=== PATIENT | male | born 1955 | race Caucasian/White ===

== ENCOUNTER 2019-10-14 09:40 | Emergency (ER) | payer MEDICARE, SELFPAY ==
[2019-10-14 09:45] VITALS: BMI 23.6
[2019-10-14 09:49] VITALS: BP 103/62; PULSE 62; RESP 18; TEMP 36.8; O2SAT 95
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
[2019-10-14 10:41] VITALS: BP 123/79; PULSE 56; RESP 16; O2SAT 91
[2019-10-14 10:59] VITALS: BP 123/77; PULSE 57; RESP 14; O2SAT 94
== END 2019-10-14 11:00 | disposition home or self-care (01) ==
LOC: ER 11:30
PROVIDERS: Emergency Provider Family Medicine; PCP Nurse Practitioner Family
DX: S22.31XA Fracture of one rib, right side, initial encounter for closed fracture (principal); F17.210 Nicotine dependence, cigarettes, uncomplicated; V89.2XXA Person injured in unspecified motor-vehicle accident, traffic, initial encounter
CPT/HCPCS: 12345; 71111; 99281; 99283

== ENCOUNTER 2020-12-22 17:03 | Emergency (ER) | payer MEDICARE, MEDICAID, SELFPAY ==
[2020-12-22 17:20] VITALS: BP 103/72; PULSE 78; RESP 16; TEMP 35.9; O2SAT 93; BMI 23.6
--- NOTE | 2020-12-22 17:31 | XRR_ITS ---
PROCEDURE INFORMATION: Exam: XR Chest Exam date and time: 12/22/2020 5:31 PM Age: 65 years old Clinical indication: Dyspnea and shortness of breath TECHNIQUE: Imaging protocol: XR of the chest. Views: 1 view. COMPARISON: CR XR ribs BI mn 4V w CXR1V [id number] 10/14/2019 10:24 AM FINDINGS: Lungs: Patchy ground-glass opacity in the peripheral right upper lobe and medial left lung base. Nipple shadow projects over the right lung base. Changes of emphysema. Pleural spaces: Unremarkable. No pleural effusion. No pneumothorax. Heart/Mediastinum: Unremarkable. No cardiomegaly. Bones/joints: Unremarkable. XR/XR chest 1V portable [id number] IMPRESSION: 1. Ground-glass opacities in the peripheral right upper lobe and left lung base are suspicious for pneumonia.
--- NOTE | 2020-12-22 17:33 | ED_ITS ---
HPI - COVID General: Chief Complaint: COVID symptoms Stated Complaint: Tired, slurred speech, off balance, sent from Time Seen by Provider: 12/22/20 17:31 Triage information: Has fever, cough or shortness of breath . No known COVID + exposure last 14 days History of Present Illness: HPI Narrative: 65-year-old male patient comes in today with complaints of weakness and not feeling well. Patient reports he has not felt good for the past few days. Patient is not specific how long he has felt bad. Patient was seen at [facility] and was tested positive for COVID- 19. Patient had a chest x-ray showed some patchy pneumonia. It was reported that patient had some low oxygen saturations at the clinic. Patient also had some lab work done at the clinic which showed mild elevation in the platelet count at 580, but otherwise unremarkable labs. COVID 19 common symptoms: positive fatigue COVID Results: No Data to Display Review of Systems General: Reports: 10 or more systems reviewed and unremarkable except in HPI and below Const: Reports: fatigue and malaise PFS ED PFSH: Family History Mother Dementia Father CAD (coronary artery disease) Social History Smoking and tobacco status: current every day smoker cigarettes Packs smoked per day: 2 Physical Exam Const: COMMON NORMALS: no acute distress and patient oriented x3 GENERAL APPEARANCE: cooperative HENMT: COMMON NORMALS: normocephalic and Normal external nose present HEAD & SCALP: normal to inspection and normocephalic NOSE: Normal external nose present MOUTH: Normal oral and palatal mucosa present Eye: GENERAL EYE: appearance normal, both eyes and all related structures Neck/C-Spine: COMMON NORMALS: full ROM Chest: COMMONS NORMALS: normal inspection of the chest Resp: COMMON NORMALS: normal respiratory effort EFFORT & INSPECTION: Yes able to speak in complete sentences AUSCULTATION: crackles Laterality: posterior (bases) Cardio: COMMON NORMALS: regular rate and regular rhythm RATE: regular rate RHYTHM: regular rhythm GI: COMMON NORMALS: non-tender Extremity: COMMON NORMALS: normal to inspection Neuro: COMMON NORMALS: patient oriented x3 and moves all extremities Psych: COMMON NORMALS: mental status grossly normal and cooperative Skin: COMMON NORMALS: no rashes or lesions noted GENERAL SKIN EXAM: no rashes or lesions noted Course Vital Signs: Vital signs: Vital Signs Temperature 96.7 F L 12/22/20 17:20 Pulse Rate 78 12/22/20 17:20 Respiratory Rate 16 12/22/20 17:20 Blood Pressure 103/72 12/22/20 17:20 Pulse Oximetry 97 12/22/20 18:44 MDM - COVID MDM Narrative: Medical decision making narrative: 65-year-old male patient was sent to the emergency department for concerns of Covid pneumonia. Patient will had some weakness. On exam patient was alert oriented and appeared well. Lungs have some crackles in the bases bilaterally. Skin was warm and dry. Vital signs were normal. Abdomen soft nontender. Differential diagnosis includes but not limited to severe Covid pneumonia, viral syndrome, dehydration. Reviewed laboratory values from [facility] noting some mild elevation of the platelets but otherwise unremarkable. I ordered a D-dimer here it was 0.6, C-reactive protein was 61, lactate was 1.4. Patient was given 500 mL of sodium chloride IV. Patient had significant improvement overall. Patient stated he felt better after the IV fluids. I discussed with patient the need to make sure that he is staying well-hydrated during his illness. Chest x-ray did note some bilateral patchy groundglass pneumonia. I discussed with patient monoclonal antibody treatment and he agreed to plan. A request was placed with central scheduling to arrange infusion. Patient will be sent home with a pulse oximetry to monitor oxygen saturation. Patient's oxygen saturation in the emergency room ran 93 to 99% on room air. Patient felt well and wanted to go home. Lab Data: Labs: Lab Results 12/22/20 12/22/20 12/22/20 Range/Units 18:00 18:00 18:00 D-Dimer 0.60 H (0-0.59) ug/mIFE U Lactic Acid 1.4 (0.5-2.2) mmol/L C-Reactive Protein 61.0 H (0.0-4.9) mg/L COVID Results: No Data to Display Discharge Plan Discharge Patient Disposition: Home Clinical Impression: Pneumonia due to 2019-nCoV Condition: Stable Prescriptions: New albuterol sulfate 90 mcg/actuation HFA aerosol inhaler 2 inh inhalation Q4H PRN (Reason: shortness of breath or wheezing) Qty: 8.5 RF: 0 Discharge Orders: Discharge ED (Routine); Ordered 12/22/20 Ordered By: Art Xiong Other Ambulatory Orders: Request for MCA (Routine) Timeframe: 1 Day Facility: [facility] - Location: Outpatient Surgical Services Ordered By: Art Xiong DME: Oxygen (Order) Location: None Selected Ordered By: Art Xiong Referrals: Sharmila Sosa FNP [Primary Care Provider] - Discharge Diet: Usual diet Discharge Activity: Increase activity as tolerated Patient Instructions: Viral Pneumonia (ED), Opioid Safety Activity Restrictions/Additional Instructions: Home and rest. Drink plenty of fluids. Use acetaminophen as needed for pain or discomfort. Use albuterol inhaler 2 puffs every 4 hours as needed for cough or difficulty breathing. Central scheduling will contact you regarding follow-up for monoclonal antibody infusion. Follow-up with primary care as needed. Return to the ER for worsening symptoms or new concerns. Coding Level of Care Code ED Launch Steward for Jose Ramon Fwd Exam Comprehensive
--- NOTE | 2020-12-22 17:42 | PC.PHAR ---
PT UNABLE TO CONFIRM MEDICATIONS. PT'S DAUGHTER IN LAW, MILKA CARDENAS, STATES THAT HE IS SUPPOSED TO BE TAKING CRESTOR AND LEXIPRO, BUT HE ISN'T. THEY WERE LAST FILLED ON 04/12/2020 FOR 90 DAYS.
[2020-12-22 18:04] VITALS: O2SAT 95
[2020-12-22 18:27] LABS: Lactic Sepsis W/Reflex 1.4 mmol/L (0.5-2.2)
[2020-12-22 18:44] VITALS: O2SAT 93; O2SAT 97
[2020-12-22 19:44] VITALS: BP 115/86; PULSE 85; RESP 16; O2SAT 95
== END 2020-12-22 20:21 | disposition home or self-care (01) ==
PROVIDERS: Emergency Provider Nurse Practitioner Family; PCP Nurse Practitioner Family
DX: U07.1 COVID-19 (principal); J12.82 Pneumonia due to coronavirus disease 2019; F17.210 Nicotine dependence, cigarettes, uncomplicated
CPT/HCPCS: 71045; 83605; 85378; 86140; 99282

== ENCOUNTER 2022-05-06 15:17 | Emergency (ER) | payer MEDICARE, MEDICAID, SELFPAY ==
[2022-05-06 15:35] VITALS: BP 124/79; PULSE 76; RESP 18; TEMP 37.5; O2SAT 96; BMI 22.9
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
[2022-05-06 17:34] LABS: Basophils # 0.1 10^3/uL (0.0-0.1); Basophils % 0.8 %; Eosinophils # 0.2 10^3/uL (0.0-0.8); Eosinophils % 1.9 %; Hematocrit 46.7 % (42.0-52.0); Hemoglobin 15.1 g/dL (11.7-16.6); Lymphocytes # 1.6 10^3/uL (0.8-4.8); Lymphocytes % 17.6 %; Mean Corpuscular HGB Conc 32.3 g/dL (30.0-36.0); Mean Corpuscular Hemoglobin 29.8 pg (28.0-34.0); Mean Corpuscular Volume 92.3 fl (80-94); Mean Platelet Volume 9.2 fL (7.4-10.4); Monocytes # 0.5 10^3/uL (0.2-0.9); Monocytes % 5.1 %; Neutrophils # 6.73 10^3/uL (1.8-7.7); Neutrophils % 74.2 %; Nucleated Red Blood Cells % 0 %; Platelet Count 257 10^3/cmm (130-400); Red Blood Count 5.06 10^6/uL (4.1-5.3); Red Cell Distribution Width 14.5 % (12.1-15.1); White Blood Count 9.1 10^3/uL (4.0-10.0)
[2022-05-06 17:51] LABS: Alanine Aminotransferase 18 U/L (0-41); Albumin Level 4.5 g/dL (3.5-5.2); Alkaline Phosphatase 99 U/L (40-130); Anion Gap 12.5 (5-19); Aspartate Amino Transferase 21 U/L (0-40); Blood Urea Nitrogen 18 mg/dL (8-23); Carbon Dioxide 27 mmol/L (22-29); Chloride 102 mmol/L (98-107); Globulin 2.7 g/dL (1.3-4.6); Glomerular Filtration Rate 84.2 mL/min (90-130); Glucose 95 mg/dL (65-115); Osmolality Calculated 286 mOsm/kg (285-295); Potassium 4.5 mmol/L (3.5-5.1); Salicylate 0.7 mg/dL (3-10); Sodium 137 mmol/L (136-145); Total Bilirubin 0.4 mg/dL (0.15-1.2); Total Protein 7.2 g/dL (6.6-8.7)
[2022-05-06 17:55] LABS: Acetaminophen < 5.0 ug/mL (10-30); Alcohol Level < 10 mg/dL (0-10)
[2022-05-06 18:01] LABS: Add Urine Microscopic? NO; Charge for UA Resulting for Rev
[2022-05-06 18:10] LABS: Amphetamines Screen Urine Negative (Negative); Barbiturates Screen Urine Negative (Negative); Benzodiazepines Screen Urine Negative (Negative); Cocaine Screen Urine Negative (Negative); Opiate Screen Urine Negative (Negative); PCP Screen Urine Negative (Negative); THC Screen Urine Negative (Negative)
[2022-05-06 18:20] LABS: Bilirubin Urine Neg (Negative); Blood Urine Neg (Negative); Glucose Urine UA Norm (Normal); Ketones Urine Negative (Negative); Leukocyte Esterase Urine Negative (Negative); Nitrate Urine Negative (Negative); Protein Urine Neg (Negative); Urine Appearance Clear (CLEAR); Urine Color Yellow (Yellow); Urobilinogen Urine Norm (Negative); pH Urine 5 (5-7)
--- NOTE | 2022-05-06 18:30 | CTR_ITS ---
PROCEDURE INFORMATION: Exam: CT Head Without Contrast Exam date and time: 05/06/2022 7:01 PM Age: 66 years old Clinical indication: Screening exam; Additional info: Confusion TECHNIQUE: Imaging protocol: Computed tomography of the head without contrast. Radiation optimization: All CT scans at this facility use at least one of these dose optimization techniques: automated exposure control; mA and/or kV adjustment per patient size (includes targeted exams where dose is matched to clinical indication); or iterative reconstruction. COMPARISON: No relevant prior studies available. RADIATION DOSE METRICS: Total DLP (mGy-cm): 911.68 FINDINGS: Brain: No focal hemorrhage or midline shift is identified. The ventricles and parenchyma show mild atrophy and chronic bicerebral white matter ischemic change. Cerebral ventricles: No ventriculomegaly or evidence of hydrocephalus. Paranasal sinuses: No evidence of acute sinusitis. Mastoid air cells: Visualized mastoid air cells are well aerated. Bones/joints: No displaced skull fracture is noted. Soft tissues: Unremarkable. Vasculature: Diffuse vascular calcifications are present. CT/CT head wo con* [id number] IMPRESSION: 1. No acute intracranial abnormality. 2. Mild age-related changes.
--- NOTE | 2022-05-06 18:40 | W.ED.PSYCHS ---
HPI - Psych General: Chief Complaint: Psychiatric Symptoms Stated Complaint: MHE Time Seen by Provider: 05/06/22 18:27 Source: patient Mode of arrival: ambulatory Limitations: no limitations History of Present Illness: 66-year-old male is here with family they states that he has had increasing confusion over the last year after having COVID believe he does have some dementia he states his main concern tonight though he is became increasingly angry they state that he was making threats today to kill himself or kill others in the house he had made fragments that he was going to get a gun he is here he does want help he states he just feels like he is increasingly depressed and angry. Associated symptoms: Reports depression and suicidal ideation Review of Systems Const: Denies: fever(s), chills, body aches or change in appetite Eyes: Denies: blurry vision or eye discomfort ENMT: Denies: throat pain or dental pain Card: Denies: chest pain Resp: Denies: dyspnea GI: Denies: abdominal pain, nausea, vomiting or diarrhea : Denies: dysuria Musc: Denies: neck pain or back pain Skin/Breast: Denies: rash Neuro: Denies: headache(s) Psych: Reports: depression and suicidal ideation John/Lymph: Denies: easy bruising All/Imm: Denies: urticaria PFSH ED PFSH: Medical History (Updated 05/07/22 @ 02:20 by Kamila Lainez MD) Memory impairment Family History Mother Dementia Father CAD (coronary artery disease) Social History Smoking and tobacco status: current every day smoker cigarettes Packs smoked per day: 2 Physical Exam Const: COMMON NORMALS: no acute distress, patient oriented x3 and healthy appearing HENMT: COMMON NORMALS: normocephalic and atraumatic HEAD & SCALP: normocephalic and atraumatic Eye: COMMON NORMALS: Equal, round and reactive pupils present and EOMs intact bilaterally PUPIL: Yes Equal, round and reactive pupils present Neck/C-Spine: COMMON NORMALS: full ROM and supple Chest: COMMONS NORMALS: normal inspection of the chest and normal palpation of entire chest wall Resp: COMMON NORMALS: normal respiratory effort, No retractions, No use of accessory muscles and clear to auscultation bilaterally AUSCULTATION: clear to auscultation bilaterally Cardio: COMMON NORMALS: regular rate, regular rhythm and No murmurs present (Cardio) RATE: regular rate RHYTHM: regular rhythm GI: COMMON NORMALS: Normal to inspection, nondistended, normoactive bowel sounds present, Soft to palpation, non-tender and no masses PALPATION: Yes Soft to palpation Extremity: COMMON NORMALS: normal to inspection and full ROM Neuro: COMMON NORMALS: patient oriented x3, moves all extremities and no focal motor deficits Psych: COMMON NORMALS: mental status grossly normal, Normal thought process present and cooperative THOUGHT PROCESS: Normal thought process present THOUGHT CONTENT: Yes Suicidality present Skin: COMMON NORMALS: no rashes or lesions noted and no wounds GENERAL SKIN EXAM: no rashes or lesions noted Course Vital Signs: Vital signs: Vital Signs Temperature 99.5 F 05/06/22 15:35 Pulse Rate 76 05/06/22 15:35 Respiratory Rate 18 05/06/22 15:35 Blood Pressure 124/79 05/06/22 15:35 Pulse Oximetry 96 05/06/22 15:35 Oxygen Delivery Me thod 05/06/22 15:35 MDM - Psych Medical Decision Making Patient presents here with depression and suicidal ideation patient's medically cleared he is excepted at [place] will transfer there. Lab Data 05/06/22 17:21 05/06/22 17:21 Radiology Impressions Chest X-Ray 05/06/22 16:26 IMPRESSION: 1. No consolidation or pneumothorax. 2. A few left lower lateral rib fractures are possible. Head CT 05/06/22 18:30 IMPRESSION: 1. No acute intracranial abnormality. 2. Mild age-related changes. Laboratory Results WBC 9.1 10^3/uL (4.0-10.0) 05/06/22 17:21 RBC 5.06 10^6/uL (4.1-5.3) 05/06/22 17:21 Hgb 15.1 g/dL (11.7-16.6) 05/06/22 17:21 Hct 46.7 % (42.0-52.0) 05/06/22 17:21 MCV 92.3 fl (80-94) 05/06/22 17:21 MCH 29.8 pg (28.0-34.0) 05/06/22 17:21 MCHC 32.3 g/dL (30.0-36.0) 05/06/22 17:21 RDW 14.5 % (12.1-15.1) 05/06/22 17:21 Plt Count 257 10^3/cmm (130-400) 05/06/22 17:21 MPV 9.2 fL (7.4-10.4) 05/06/22 17:21 Neut % (Auto) 74.2 % 05/06/22 17:21 Lymph % (Auto) 17.6 % 05/06/22 17:21 [place] % (Auto) 5.1 % 05/06/22 17: Eos % (Auto) 1.9 % 05/06/22 17: Baso % (Auto) 0.8 % 05/06/22 17: Neut # (Auto) 6.73 10^3/uL (1.8-7.7) 05/06/22 17: Lymph # (Auto) 1.6 10^3/uL (0.8-4.8) 05/06/22 17:21 [place] # (Auto) 0.5 10^3/uL (0.2-0.9) 05/06/22 17:21 Eos # (Auto) 0.2 10^3/uL (0.0-0.8) 05/06/22 17:21 Baso # (Auto) 0.1 10^3/uL (0.0-0.1) 05/06/22 17: Nucleated RBC % (auto) 0 % 05/06/22 17: Nucleated RBCs # 0.0 /100WBC 05/06/22 17:21 Sodium 137 mmol/L (136-145) 05/06/22 17:21 Potassium 4.5 mmol/L (3.5-5.1) 05/06/22 17:21 Chloride 102 mmol/L (98-107) 05/06/22 17:21 Carbon Dioxide 27 mmol/L (22-29) 05/06/22 17:21 Anion Gap 12.5 (5-19) 05/06/22 17:21 BUN 18 mg/dL (8-23) 05/06/22 17:21 Creatinine 0.9 mg/dL (0.7-1.2) 05/06/22 17:21 GFR Calculation 84.2 mL/min (90-130) L 05/06/22 17:21 Glucose 95 mg/dL (65-115) 05/06/22 17:21 Calculated Osmolality 286 mOsm/kg (285-295) 05/06/22 17:21 Calcium 10.0 mg/dL (8.5-10.5) 05/06/22 17:21 Total Bilirubin 0.4 mg/dL (0.15-1.2) 05/06/22 17:21 AST 21 U/L (0-40) 05/06/22 17:21 ALT 18 U/L (0-41) 05/06/22 17:21 Alkaline Phosphatase 99 U/L (40-130) 05/06/22 17:21 Total Protein 7.2 g/dL (6.6-8.7) 05/06/22 17:21 Albumin 4.5 g/dL (3.5-5.2) 05/06/22 17: Globulin 2.7 g/dL (1.3-4.6) 05/06/22 17: TSH 3.51 uIU/mL (0.27-4.20) 05/06/22 17:21 Urine Color Yellow (Yellow) 05/06/22 17:30 Urine Appearance Clear (CLEAR) 05/06/22 17:30 Urine pH 5 (5-7) 05/06/22 17:30 Ur Specific [place] 1.010 (1.005-1.030) 05/06/22 17:30 Urine Protein Neg (Negative) 05/06/22 17:30 Urine Glucose (UA) Norm (Normal) 05/06/22 17:30 Urine Ketones Negative (Negative) 05/06/22 17:30 Urine Blood Neg (Negative) 05/06/22 17:30 Urine Nitrate Negative (Negative) 05/06/22 17: Urine Bilirubin Neg (Negative) 05/06/22 17:30 Urine Urobilinogen Norm mg/dL (Negative) 05/06/22 17:30 Ur Leukocyte Esterase Negative (Negative) 05/06/22 17:30 Salicylates 0.7 mg/dL (3-10) L 05/06/22 17: Urine Opiates Screen Negative ng/mL (Negative) 05/06/22 17:30 Acetaminophen < 5.0 ug/mL (10-30) L 05/06/22 17:21 Ur Barbiturates Screen Negative ng/mL (Negative) 05/06/22 17:30 Ur Phencyclidine Scrn Negative ng/mL (Negative) 05/06/22 17:30 Ur Amphetamines Screen Negative ng/mL (Negative) 05/06/22 17:30 U Benzodiazepines Scrn Negative ng/mL (Negative) 05/06/22 17:30 Urine Cocaine Screen Negative ng/mL (Negative) 05/06/22 17:30 U Marijuana (THC) Screen Negative ng/mL (Negative) 05/06/22 17:30 Ethyl Alcohol < 10 mg/dL (0-10) 05/06/22 17:21 SARS-CoV-2 Ag (Rapid) negative (Negative) 05/06/22 19:30 Discharge Plan Discharge Patient Disposition: Xfer [facility]iatric [facility]osp Clinical Impression: Suicidal ideation Condition: Stable Prescriptions: No Action albuterol sulfate 90 mcg/actuation HFA aerosol inhaler 2 inh inhalation Q4H PRN (Reason: shortness of breath or wheezing) Qty: 8.5 0RF Referrals: Sharmila Sosa FNP [Primary Care Provider] - Coding Level of Care Code ED Workers Compensation Claims Analyst for Chg Fwd Exam Comprehensive
[2022-05-06 19:07] LABS: Thyroid Stimulating Hormone 3.51 uIU/mL (0.27-4.20)
[2022-05-06 19:50] LABS: SARS Covid-2 Antigen negative (Negative)
--- NOTE | 2022-05-06 22:25 | ECG_ITS ---
[facility] Test Date: 2022-05-06 Pat Name: Alfie Paige Department: Room: Gender: Male Shaper And Presser: : 1955 Requested By: Kamila Lainez Order Number: [id number] Vita MD: Kashmir Clifford M.D. Measurements Intervals [place] Rate: 65 P: 74 FL: 170 QRS: -70 QRSD: 88 T: 63 QT: 407 QTc: 425 Interpretive Statements SINUS RHYTHM LOW QRS VOLTAGE IN PRECORDIAL LEADS [QRS DEFLECTION < 1.0 mV IN CHEST LEADS] LEFT ANTERIOR FASCICULAR BLOCK [QRS AXIS <= -45, QR IN I, RS IN II] POSSIBLE ANTERIOR MYOCARDIAL INFARCTION , OF INDETERMINATE AGE [30 ms Q WAVE IN V3/V4, OR R < 0.2 mV IN V4] INTERPRETATION BASED ON A DEFAULT AGE OF 40 YEARS No previous ECG available for comparison Electronically Signed On 05-07-2022 7:39:46 SENIOR ANALYTICAL CHEMIST by Kashmir Clifford M.D. [email or web address]
[2022-05-06 23:11] VITALS: BP 112/71; PULSE 76; RESP 18; O2SAT 97
--- NOTE | 2022-05-07 04:18 | PC.NURSE ---
Report called to Wendy Rudolph RN at [place].
[2022-05-07 05:35] VITALS: BP 118/67; PULSE 72; RESP 18; O2SAT 96
[2022-05-07 08:23] VITALS: BP 118/67; PULSE 72; RESP 18; O2SAT 96
== END 2022-05-07 08:25 ==
PROVIDERS: Physician Assistant; Emergency Provider Emergency Medicine; PCP Nurse Practitioner Family
DX: R45.851 Suicidal ideations (principal); Z20.822 Contact with and (suspected) exposure to COVID-19; F17.210 Nicotine dependence, cigarettes, uncomplicated
CPT/HCPCS: 36415; 70450; 71045; 80053; 80306; 80307; 81003; 84443; 85025; 87426; 93005; 99285

== ENCOUNTER 2023-05-05 11:15 | Emergency (ER) | payer MEDICARE, MEDICAID, SELFPAY ==
--- NOTE | 2023-05-05 11:19 | W.ED.FALL ---
Documented by User: KACIE Rosalse 05/05/23 15:05 HPI - Fall General: Chief Complaint: Extremity Injury, Lower Stated Complaint: fall, hip, shoulder, and neck pain Time Seen by Provider: 05/05/23 11:17 Source: patient Mode of arrival: EMS Limitations: no limitations History of Present Illness: Patient is a nice 67-year-old male who presents to ED today via EMS for evaluation following a fall. Patient states he is stepped outside to smoke a cigarette when he slipped and fell on the icy concrete. Patient states he landed onto his left side and is complaining of left hip pain and left shoulder pain. He denies striking his head or LOC. He has no other physical complaints apart from the left hip and left shoulder pain. He states the left shoulder pain is fairly minimal when compared to the pain in his hip. He states he was able to be helped up from the ground by another individual but could not bear weight following this. PMH is significant for COPD. He arrives to the ED slightly hypotensive. He is unsure what a normal blood pressure is for him. MD complaint: fall Onset (ago): hour(s) Fall from: standing Fall witnessed: no Place fall occurred: home Loss of consciousness: None Prolonged down time: no Symptoms prior to fall: none Context: tripped/slipped (ice) Associated symptoms-after fall: Denies abdominal pain, chest pain, headache(s), hematuria, lightheadedness or neck pain Review of Systems Eyes: Denies: change in vision, blurry vision, photophobia, eye discharge, floaters or seeing flashes ENMT: Denies: throat pain, odynophagia, ear or mastoid pain, ear discharge, nasal discharge, epistaxis or sinus pain Card: Denies: chest pain, palpitations, lightheadedness, syncope or pre-syncope Resp: Denies: dyspnea or pain on inspiration GI: Denies: abdominal pain : Denies: flank pain or hematuria Musc: Reports: joint pain (L shoulder, L hip); Denies: neck pain, back pain, extremity pain or extremity swelling Neuro: Denies: headache(s), numbness in extremities, weakness in extremities, sensory changes or dizziness [facility] ED PFSH: Medical History Memory impairment Family History Mother Dementia Father CAD (coronary artery disease) Social History Smoking and tobacco/nicotine status: current every day tobacco/nicotine user cigarettes Packs smoked per day: 2 Physical Exam Const: COMMON NORMALS: no acute distress, average body habitus, patient oriented x3, no limitations, healthy appearing, alert and well nourished GENERAL APPEARANCE: cooperative ORIENTATION/CONSCIOUSNESS: Yes awake, Yes oriented to person, Yes oriented to place and Yes oriented to time HENMT: COMMON NORMALS: normocephalic, atraumatic and TM's normal bilaterally HEAD & SCALP: normal to inspection, normocephalic and atraumatic; no Castro's sign, no hematoma and no raccoon eyes FACE & SINUS: normal facial exam TYMPANIC MEMBRANE: TM's normal bilaterally MOUTH: other (no intraoral injuries noted) Eye: COMMON NORMALS: Equal, round and reactive pupils present and EOMs intact bilaterally GENERAL EYE: appearance normal, both eyes and all related structures and normal light reflex PUPIL: Yes Equal, round and reactive pupils present DIRECT OPHTHALMOSCOPY: Yes normal light reflex Neck/C-Spine: COMMON NORMALS: full ROM GENERAL: Yes normal visual inspection CERVICAL SPINE: Yes cervical ROM normal, No pain with cervical ROM, No Cervical spine tenderness, No step off deformity and No Paracervical muscle tenderness Chest: COMMONS NORMALS: normal inspection of the chest and normal palpation of entire chest wall Resp: COMMON NORMALS: normal respiratory effort and clear to auscultation bilaterally AUSCULTATION: clear to auscultation bilaterally Cardio: COMMON NORMALS: regular rate and regular rhythm RATE: regular rate RHYTHM: regular rhythm GI: COMMON NORMALS: Normal to inspection, nondistended, normoactive bowel sounds present, Soft to palpation, non-tender, No hepatosplenomegaly present and no masses INSPECTION: Yes normal to inspection and No abdominal wall ecchymosis AUSCULTATION: Yes normoactive bowel sounds PALPATION: Yes Soft to palpation and Yes No hepatosplenomegaly present Back/Pelvis: COMMON NORMALS: thoracic and lumbar spine normal to inspection, no thoracic nor lumbar tenderness and thoraco-lumbar ROM normal Extremity: COMMON NORMALS: normal to inspection, no joint enlargement, no clubbing, cyanosis or edema, no calf tenderness and no pedal edema GENERAL: Yes normal exam except as noted LEFT UPPER EXTREMITY: Yes shoulder joint Left shoulder joint: Yes inspection (normal gross inspection), Yes ROM (fairly good ROM; states joint feels sore) and Yes neurovascular exam (normal) LEFT LOWER EXTREMITY: Yes hip joint Left hip: Yes inspection (no shortening or rotation noted), Yes palpation (no bony abnormalities palpated), Yes ROM (pain with flexion/adduction) and Yes neurovascular exam (normal) Neuro: JOHN COMA SCALE: document GCS findings John coma scale eye opening: Spontaneous [place] coma scale verbal response: Orientated John coma scale motor response: Obey commands [place] coma scale total score: 15 COMMON NORMALS: patient oriented x3, CN's II-XII intact bilaterally, moves all extremities, no focal motor deficits, no sensory deficits noted and gait normal SENSORIUM/ORIENTATION: Yes alert, Yes oriented to person, Yes oriented to place and Yes oriented to time SPEECH: speech normal GAIT: Yes Normal gait present Skin: COMMON NORMALS: no rashes or lesions noted GENERAL SKIN EXAM: no rashes or lesions noted TRAUMA: no lacerations or abrasions Course Vital Signs: Vital signs: Vital Signs Pulse Rate 60 05/05/23 15:30 Respiratory Rate 18 05/05/23 15:30 Blood Pressure 135/73 05/05/23 15:30 Pulse Oximetry 95 05/05/23 15:30 Oxygen Delivery Me thod Nasal Cannula 05/05/23 11:25 Oxygen Flow Rate 2 05/05/23 11:25 MDM - Fall Medical Decision Making Chart reviewed and patient discussed with midlevel. Agree with assessment and plan. Patient here following a slip and fall. He arrives with a complaint of left shoulder and left hip pain. X-ray of the shoulder is negative for acute fracture. X-ray of the hip showing questionable pelvic fractures by personal interpretation. Bony pelvis was ordered. This shows multiple pelvic fractures including comminuted anterior and superior acetabular fractures extending into his left ilium. He has fractures of his superior and inferior pubic rami. He has a left pelvic sidewall hematoma measuring 9.8 x 3.5 cm. He did arrive mildly hypotensive. This has improved. Initially spoke to Dr. Nolen who was willing to consult on patient here if needed. We had spoken to Dr. Gibson who had recommended repeat hemoglobin as there was concern for enlarging hematoma. Repeat hemoglobin went from 14.7 to 13.1. Because of this patient is going to require transfer. Dr. Harper has also evaluated patient and agrees with care plan here and need for transfer. I have spoken to Dr. Jackson, ED [facility] physician, who accepts transfer. Pelvic binder has been placed. Patient will be typed and screened. Nurse is calling report at this time. Medical Records I reviewed the patient's medical records. Lab Data I reviewed the patient's lab results. 05/05/23 14:15 05/05/23 11:00 Laboratory Results WBC 10.13 10^3/uL (3.29-11.43) 05/05/23 11:00 RBC 5.01 10^6/uL (3.85-5.65) 05/05/23 11:00 Hgb 13.10 g/dL (11.27-16.99) 05/05/23 14:15 Hct 45.0 % (37-53) 05/05/23 11:00 MCV 89.8 fl (82-101) 05/05/23 11:00 MCH 29.3 pg (27-33) 05/05/23 11:00 MCHC 32.7 g/dL (30-55) 05/05/23 11:00 RDW 13.9 % (12.1-15.1) 05/05/23 11:00 Plt Count 296 10^3/cmm (157-399) 05/05/23 11:00 MPV 9.5 fL (7.4-10.4) 05/05/23 11:00 Neut % (Auto) 66.3 % 05/05/23 11:00 Lymph % (Auto) 24.7 % 05/05/23 11:00 [place] % (Auto) 4.9 % 05/05/23 11:00 Eos % (Auto) 2.5 % 05/05/23 11:00 Baso % (Auto) 0.8 % 05/05/23 11:00 Neut # (Auto) 6.72 10^3/uL (1.8-7.7) 05/05/23 11:00 Lymph # (Auto) 2.5 10^3/uL (0.8-4.8) 05/05/23 11:00 [place] # (Auto) 0.5 10^3/uL (0.2-0.9) 05/05/23 11:00 Eos # (Auto) 0.3 10^3/uL (0.0-0.8) 05/05/23 11:00 Baso # (Auto) 0.1 10^3/uL (0.0-0.1) 05/05/23 11:00 Nucleated RBC % (auto) 0 % 05/05/23 11:00 Nucleated RBCs # 0.0 /100WBC 05/05/23 11:00 Sodium 138 mmol/L (136-145) 05/05/23 11:00 Potassium 3.5 mmol/L (3.5-5.1) 05/05/23 11:00 Chloride 101 mmol/L (98-107) 05/05/23 11:00 Carbon Dioxide 25 mmol/L (22-29) 05/05/23 11:00 Anion Gap 15.5 (5-19) 05/05/23 11:00 BUN 15 mg/dL (8-23) 05/05/23 11:00 Creatinine 0.9 mg/dL (0.7-1.2) 05/05/23 11:00 GFR Calculation 83.9 mL/min (90-130) L 05/05/23 11:00 Glucose 111 mg/dL (65-115) 05/05/23 11:00 Calculated Osmolality 288 mOsm/kg (285-295) 05/05/23 11:00 Calcium 9.5 mg/dL (8.5-10.5) 05/05/23 11:00 Total Bilirubin 0.4 mg/dL (0.15-1.2) 05/05/23 11:00 AST 22 U/L (0-40) 05/05/23 11:00 ALT 21 U/L (0-41) 05/05/23 11:00 Alkaline Phosphatase 113 U/L (40-130) 05/05/23 11:00 Total Protein 7.1 g/dL (6.6-8.7) 05/05/23 11:00 Albumin 4.3 g/dL (3.5-5.2) 05/05/23 11:00 Globulin 2.8 g/dL (1.3-4.6) 05/05/23 11:00 Blood Type O Positive 05/05/23 13:05 Rho(D) Type Rh positive 05/05/23 13:05 Antibody Screen Negative 05/05/23 13:05 All radiology interpretation(s) finalized by discharge ED provider radiology interpretation(s): IMPRESSION: 1. Comminuted fractures LEFT anterior and superior acetabulum extending into the LEFT ilium. 2. Fractures extend into the LEFT superior pubic ramus. Comminuted LEFT inferior pubic ramus fracture. 3. LEFT pelvic sidewall hematoma measuring 9.8 craniocaudal x 3.5 transverse 4. Wide mouth bilateral fat-containing inguinal hernias with nonobstructed herniated bowel. 5. Grade 1-2 anterolisthesis L5 on S1 with chronic spondylolysis. Discharge Plan Discharge Patient Disposition: Transfer to ED Clinical Impression: Hematoma of pelvis Multiple pelvic fractures Qualifiers: Encounter type: initial encounter Fracture type: closed Fracture alignment: with stable disruption of pelvic ring Qualified Code(s): S32.810A - Multiple fractures of pelvis with stable disruption of pelvic ring, initial encounter for closed fracture Fall from slipping on ice Qualifiers: Encounter type: initial encounter Qualified Code(s): W00.9XXA - Unspecified fall due to ice and snow, initial encounter Condition: Stable Prescriptions: No Action albuterol sulfate 90 mcg/actuation HFA aerosol inhaler 2 inh inhalation Q4H PRN (Reason: shortness of breath or wheezing) Qty: 8.5 0RF Referrals: Sharmila Sosa FNP [Primary Care Provider] - Coding Level of Care Code ED Center Machine Set Up Operator for Chg Fwd Documented by User: Cristian Harper DO 05/05/23 15:48 HPI - Fall General: Chief Complaint: Extremity Injury, Lower Stated Complaint: fall, hip, shoulder, and neck pain Time Seen by Provider: 05/05/23 11:17 PFSH ED PFSH: Medical History Memory impairment Family History Mother Dementia Father CAD (coronary artery disease) Social History Smoking and tobacco/nicotine status: current every day tobacco/nicotine user cigarettes Packs smoked per day: 2 Physical Exam Neuro: JOHN COMA SCALE: document GCS findings John coma scale total score: 15 Course Vital Signs: Vital signs: Vital Signs Pulse Rate 60 05/05/23 15:30 Respiratory Rate 18 05/05/23 15:30 Blood Pressure 135/73 05/05/23 15:30 Pulse Oximetry 95 05/05/23 15:30 Oxygen Delivery Me thod Nasal Cannula 05/05/23 11:25 Oxygen Flow Rate 2 05/05/23 11:25 MDM - Fall Medical Decision Making Chart reviewed and patient discussed with midlevel. Agree with assessment and plan. Lab Data 05/05/23 14:15 05/05/23 11:00 Laboratory Results WBC 10.13 10^3/uL (3.29-11.43) 05/05/23 11:00 RBC 5.01 10^6/uL (3.85-5.65) 05/05/23 11:00 Hgb 13.10 g/dL (11.27-16.99) 05/05/23 14:15 Hct 45.0 % (37-53) 05/05/23 11:00 MCV 89.8 fl (82-101) 05/05/23 11:00 MCH 29.3 pg (27-33) 05/05/23 11:00 MCHC 32.7 g/dL (30-55) 05/05/23 11:00 RDW 13.9 % (12.1-15.1) 05/05/23 11:00 Plt Count 296 10^3/cmm (157-399) 05/05/23 11:00 MPV 9.5 fL (7.4-10.4) 05/05/23 11:00 Neut % (Auto) 66.3 % 05/05/23 11:00 Lymph % (Auto) 24.7 % 05/05/23 11:00 [place] % (Auto) 4.9 % 05/05/23 11:00 Eos % (Auto) 2.5 % 05/05/23 11:00 Baso % (Auto) 0.8 % 05/05/23 11:00 Neut # (Auto) 6.72 10^3/uL (1.8-7.7) 05/05/23 11:00 Lymph # (Auto) 2.5 10^3/uL (0.8-4.8) 05/05/23 11:00 [place] # (Auto) 0.5 10^3/uL (0.2-0.9) 05/05/23 11:00 Eos # (Auto) 0.3 10^3/uL (0.0-0.8) 05/05/23 11:00 Baso # (Auto) 0.1 10^3/uL (0.0-0.1) 05/05/23 11:00 Nucleated RBC % (auto) 0 % 05/05/23 11:00 Nucleated RBCs # 0.0 /100WBC 05/05/23 11:00 Sodium 138 mmol/L (136-145) 05/05/23 11:00 Potassium 3.5 mmol/L (3.5-5.1) 05/05/23 11:00 Chloride 101 mmol/L (98-107) 05/05/23 11:00 Carbon Dioxide 25 mmol/L (22-29) 05/05/23 11:00 Anion Gap 15.5 (5-19) 05/05/23 11:00 BUN 15 mg/dL (8-23) 05/05/23 11:00 Creatinine 0.9 mg/dL (0.7-1.2) 05/05/23 11:00 GFR Calculation 83.9 mL/min (90-130) L 05/05/23 11:00 Glucose 111 mg/dL (65-115) 05/05/23 11:00 Calculated Osmolality 288 mOsm/kg (285-295) 05/05/23 11:00 Calcium 9.5 mg/dL (8.5-10.5) 05/05/23 11:00 Total Bilirubin 0.4 mg/dL (0.15-1.2) 05/05/23 11:00 AST 22 U/L (0-40) 05/05/23 11:00 ALT 21 U/L (0-41) 05/05/23 11:00 Alkaline Phosphatase 113 U/L (40-130) 05/05/23 11:00 Total Protein 7.1 g/dL (6.6-8.7) 05/05/23 11:00 Albumin 4.3 g/dL (3.5-5.2) 05/05/23 11:00 Globulin 2.8 g/dL (1.3-4.6) 05/05/23 11:00 Blood Type O Positive 05/05/23 13:05 Rho(D) Type Rh positive 05/05/23 13:05 Antibody Screen Negative 05/05/23 13:05 Discharge Plan Discharge Patient Disposition: Transfer to ED Clinical Impression: Hematoma of pelvis Multiple pelvic fractures Qualifiers: Encounter type: initial encounter Fracture type: closed Fracture alignment: with stable disruption of pelvic ring Qualified Code(s): S32.810A - Multiple fractures of pelvis with stable disruption of pelvic ring, initial encounter for closed fracture Fall from slipping on ice Qualifiers: Encounter type: initial encounter Qualified Code(s): W00.9XXA - Unspecified fall due to ice and snow, initial encounter Condition: Stable Prescriptions: No Action albuterol sulfate 90 mcg/actuation HFA aerosol inhaler 2 inh inhalation Q4H PRN (Reason: shortness of breath or wheezing) Qty: 8.5 0RF Referrals: Sharmila Sosa FNP [Primary Care Provider] - Coding Level of Care Code ED Center Machine Set Up Operator for Jose Ramon Colvin
[2023-05-05 11:25] VITALS: BP 93/58; PULSE 59; O2SAT 94
--- NOTE | 2023-05-05 11:29 | XR_ITS ---
WS: [id number] XR shoulder LT min 2V* [id number] REASON FOR EXAM: fall/trauma FINDINGS: Presumed old posttraumatic degenerative arthropathy of the acromioclavicular joint with the clavicle overriding the acromial process. Presumed soft tissue anchor for rotator cuff tendon repair in the greater tuberosity. There is deformity of the scapular body which appears to be an old healed fracture. The alignment of the glenohumeral joint appears deformed. Positioning not optimal. This does not appe ar to represent an anterior dislocation. The deformity may be due to severe osteoarthritis in the gle nohumeral joint. A lateral view or axillary view may be helpful as clinically required. Humeral head or neck fracture not defined. IMPRESSION: No definitive fracture. Degenerative and arthropathic change in the shoulder joint as above. Additional shoulder view may be helpful as clinically warranted.
--- NOTE | 2023-05-05 11:29 | XR_ITS ---
WS: [id number] XR hip LT 2-3V wo/w pel* [id number] REASON FOR EXAM: fall/trauma; one view pelvis too please FINDINGS: No acute fracture of the femoral head or neck or proximal femur. Moderate narrowing of the joint space with moderate subchondral sclerosis and cystic change in the ac etabulum. Moderate osteophytic spurring of the femoral head. Deformity of the superior and inferior pubic ramus near the symphysis. This appears to be at subacute injury. IMPRESSION: No acute fracture of the hip. Pubic rami abnormality as above. Moderate osteoarthritis of the left hip.
--- NOTE | 2023-05-05 11:30 | XR_ITS ---
WS: [id number] PORTABLE CHEST HISTORY: fall COMPARISON: 05/06/2022 Mild interstitial thickening and emphysema. No pneumonia. No pleural effusion or pneumothorax. Cardiac size: Normal. Mediastinum/Aorta: Mild atherosclerosis aorta. No osseous abnormality seen. IMPRESSION: Emphysema. No pneumonia.
[2023-05-05 11:54] LABS: Basophils # 0.1 10^3/uL (0.0-0.1); Basophils % 0.8 %; Eosinophils # 0.3 10^3/uL (0.0-0.8); Eosinophils % 2.5 %; Lymphocytes # 2.5 10^3/uL (0.8-4.8); Lymphocytes % 24.7 %; Mean Corpuscular HGB Conc 32.7 g/dL (30-55); Mean Corpuscular Hemoglobin 29.3 pg (27-33); Mean Corpuscular Volume 89.8 fl (82-101); Mean Platelet Volume 9.5 fL (7.4-10.4); Monocytes # 0.5 10^3/uL (0.2-0.9); Monocytes % 4.9 %; Neutrophils # 6.72 10^3/uL (1.8-7.7); Neutrophils % 66.3 %; Nucleated Red Blood Cells % 0 %; Platelet Count 296 10^3/cmm (157-399); Red Blood Count 5.01 10^6/uL (3.85-5.65); Red Cell Distribution Width 13.9 % (12.1-15.1); White Blood Count 10.13 10^3/uL (3.29-11.43)
--- NOTE | 2023-05-05 11:57 | CT_ITS ---
WS: [id number] NONCONTRAST CT PELVIS TECHNIQUE: Noncontrast CT pelvis with coronal and sagittal reformatted images. CLINICAL INFORMATION: fall/trauma; question fxs on XRs COMPARISON: None. DLP: 367.[address] scans at [facility] use at least one of these dose optimization techniques: automated e xposure control; mA and/or kV adjustment per patient size (includes targeted exams where dose is matc hed to clinical indication); or iterative reconstruction. FINDINGS: Chronic grade 1-2 anterolisthesis L5 on S1 with chronic spondylolysis. Severe bilateral bony foramina l narrowing L5-S1. Mild disc bulge at L4-5. Comminuted fractures involving the LEFT anterior acetabul um extending to the pubic root. Fracture extends to involve the superior acetabulum and adjacent iliu m. Fracture extends into the LEFT superior pubic ramus. Comminuted fracture involving the LEFT inferi or pubic ramus. LEFT femoral head appears normal. Hematoma involving the LEFT pelvic sidewall with as sociated soft tissue induration. Minimal mass effect on the bladder. Bilateral fat-containing inguinal hernias with herniated bowel loops. No evidence of obstruction. Olman cified loose bodies RIGHT hip. No RIGHT hip fractures. Vascular calcification. IMPRESSION: 1. Comminuted fractures LEFT anterior and superior acetabulum extending into the LEFT ilium. 2. Fractures extend into the LEFT superior pubic ramus. Comminuted LEFT inferior pubic ramus fractur e. 3. LEFT pelvic sidewall hematoma measuring 9.8 craniocaudal x 3.5 transverse 4. Wide mouth bilateral fat-containing inguinal hernias with nonobstructed herniated bowel. 5. Grade 1-2 anterolisthesis L5 on S1 with chronic spondylolysis. Notified KACIE Rosales at 05/05/2023 12:34 PM.
[2023-05-05 12:06] LABS: Alanine Aminotransferase 21 U/L (0-41); Albumin Level 4.3 g/dL (3.5-5.2); Alkaline Phosphatase 113 U/L (40-130); Anion Gap 15.5 (5-19); Aspartate Amino Transferase 22 U/L (0-40); Blood Urea Nitrogen 15 mg/dL (8-23); Calcium 9.5 mg/dL (8.5-10.5); Carbon Dioxide 25 mmol/L (22-29); Chloride 101 mmol/L (98-107); Globulin 2.8 g/dL (1.3-4.6); Glomerular Filtration Rate 83.9 mL/min (90-130); Glucose 111 mg/dL (65-115); Osmolality Calculated 288 mOsm/kg (285-295); Potassium 3.5 mmol/L (3.5-5.1); Sodium 138 mmol/L (136-145); Total Bilirubin 0.4 mg/dL (0.15-1.2); Total Protein 7.1 g/dL (6.6-8.7)
[2023-05-05] MEDS: sodium chloride 0.9% 1,000 ML 999 ML IV (12:23)
[2023-05-05 13:29] VITALS: BP 130/84; PULSE 61; RESP 18; O2SAT 96
[2023-05-05 14:28] VITALS: BP 110/63; PULSE 60; RESP 16; O2SAT 97
[2023-05-05] MEDS: morphine 4 mg/mL SDV 1 mL IVP (15:05)
[2023-05-05] MEDS: ondansetron 2 mg/ML SDV 2 mL 4 MG IVP (15:05)
[2023-05-05 15:30] VITALS: BP 135/73; PULSE 60; RESP 18; O2SAT 95
== END 2023-05-05 17:08 ==
PROVIDERS: Emergency Provider Physician Assistant; PCP Nurse Practitioner Family
DX: S32.810A Multiple fractures of pelvis with stable disruption of pelvic ring, initial encounter for closed fracture (principal); W00.9XXA Unspecified fall due to ice and snow, initial encounter; M25.512 Pain in left shoulder; I95.9 Hypotension, unspecified
CPT/HCPCS: 36415; 51702; 71045; 72192; 73030; 73502; 80053; 85018; 85025; 86850; 86900; 96374; 96375; 99285; J2270; J2405; J7030

== ENCOUNTER 2023-06-04 04:08 | Emergency (ER) | payer OTHER, MEDICARE, MEDICAID, SELFPAY ==
[2023-06-04 04:09] VITALS: BP 107/66; PULSE 62; RESP 18; TEMP 36.9; O2SAT 92; BMI 22.9
--- NOTE | 2023-06-04 04:09 | XRR_ITS ---
PROCEDURE INFORMATION: Exam: XR Left Hip Exam date and time: 06/04/2023 4:27 AM Age: 67 years old Clinical indication: Injury or trauma; Blunt trauma (contusions or hematomas); Patient HX: Fall, left hip pain TECHNIQUE: Imaging protocol: Radiologic exam of the left hip. Views: 2 or 3 views hip with pelvis when performed. COMPARISON: CT bony pelvis [id number] 05/05/2023 12:13 PM FINDINGS: Bones/joints: Acetabular fracture is suspected, better depicted on CT of the left pelvis performed subsequent to this examination. Osteopenia limits assessment. Soft tissues: Unremarkable. XR/XR hip LT 2-3V wo/w pel* [id number] IMPRESSION: Limited study due to osteopenia and patient positioning. Suspect fracture of the left acetabulum. Please correlate with subsequently performed CT of the left hip.
--- NOTE | 2023-06-04 04:14 | ED_ITS ---
HPI - Extremity Problem General: Chief complaint: Extremity Injury, Lower Stated complaint: fall, hip pain Time Seen by Provider: 06/04/23 04:08 Source: patient and EMS Mode of arrival: EMS Limitations: no limitations History of Present Illness: 67-year-old male is brought here from [facility] he is found on the floor fell out of bed. He denies hitting his head denies any loss of consciousness he does complain of left hip pain. Denies any worsening improving factors. Associated symptoms: Deny chest pain, fever(s) or rash Review of Systems Const: Denies: fever(s), chills, body aches or change in appetite ENMT: Denies: throat pain or dental pain Card: Denies: chest pain Resp: Denies: dyspnea GI: Denies: abdominal pain, nausea, vomiting or diarrhea Musc: Reports: extremity pain; Denies: neck pain or back pain Skin/Breast: Denies: rash All/Imm: Denies: urticaria PFSH ED PFSH: Medical History Memory impairment Family History Mother Dementia Father CAD (coronary artery disease) Social History Smoking and tobacco/nicotine status: current every day tobacco/nicotine user cigarettes Packs smoked per day: 2 Physical Exam Const: COMMON NORMALS: no acute distress, patient oriented x3 and healthy appearing HENMT: COMMON NORMALS: normocephalic and atraumatic HEAD & SCALP: normocephalic and atraumatic Eye: COMMON NORMALS: conjunctivae normal CONJUNCTIVA: Yes conjunctivae normal Neck/C-Spine: COMMON NORMALS: full ROM and supple CERVICAL SPINE: Yes cervical ROM normal and No Cervical spine tenderness Chest: COMMONS NORMALS: normal inspection of the chest and normal palpation of entire chest wall Resp: COMMON NORMALS: normal respiratory effort, No retractions, No use of accessory muscles and clear to auscultation bilaterally AUSCULTATION: clear to auscultation bilaterally Cardio: COMMON NORMALS: regular rate, regular rhythm and No murmurs present (Cardio) RATE: regular rate RHYTHM: regular rhythm GI: COMMON NORMALS: Normal to inspection, nondistended, normoactive bowel sounds present, Soft to palpation, non-tender and no masses PALPATION: Yes Soft to palpation Extremity: COMMON NORMALS: normal to inspection and full ROM NARRATIVE EXTREMITY EXAM: No deformity noticed to left hip he has full range of motion Neuro: COMMON NORMALS: patient oriented x3, moves all extremities and no focal motor deficits Psych: COMMON NORMALS: mental status grossly normal, Normal thought process present and cooperative THOUGHT PROCESS: Normal thought process present Skin: COMMON NORMALS: no rashes or lesions noted and no wounds GENERAL SKIN EXAM: no rashes or lesions noted Course Vital Signs: Vital signs: Vital Signs Temperature 98.5 F 06/04/23 04:09 Pulse Rate 62 06/04/23 04:09 Respiratory Rate 18 06/04/23 04:09 Blood Pressure 107/66 06/04/23 04:09 Pulse Oximetry 92 06/04/23 04:09 Oxygen Delivery Me thod Nasal Cannula 06/04/23 04:09 Oxygen Flow Rate 2 06/04/23 04:09 MDM - Extremity (Nontraumatic) Medical Decision Making Patient presents here with a fall [facility] bed [facility] patient has been seen here a month ago after fall from ice and had multiple pelvic fractures then spoke to his daughter along with [facility] he did not have surgery at [facility] likely due to his severe osteopenia he supposed to be still nonweightbearing but he has been on but compliant and gets up at times we will discharge him back to the [facility] he is to be nonweightbearing follow-up with orthopedics CT shows no new fractures just the old fractures Lab Data I reviewed the patient's lab results. Radiology Impressions Hip/Pelvis X-Ray 06/04/23 04:09 IMPRESSION: Limited study due to osteopenia and patient positioning. Suspect fracture of the left acetabulum. Please correlate with subsequently performed CT of the left hip. Hip CT 06/04/23 04:52 IMPRESSION: Left pelvic fractures as described including the acetabulum. ADDENDUM: 06/04/23 0549 Comparison with prior imaging from 05/05/2023. Acetabular and inferior pubic ramus fractures were present however they are more parent on the current examination. It is unclear whether this is due to reactive demineralization an interval healing versus extension and distraction of the fracture lines. It appears that the anterior column pelvic fracture has extended into the superior pubic ramus since the prior study. Previously present hematoma along the medial aspect of the acetabulum has resolved. THIS REPORT CONTAINS FINDINGS THAT MAY BE CRITICAL TO PATIENT CARE. The findings were verbally communicated via telephone conference with DOM GRIJALVA at 5:47 AM WASH WORKER on 06/04/2023. The findings were acknowledged and understood. All radiology interpretation(s) finalized by discharge Discharge Plan Discharge Patient Disposition: Home Clinical Impression: Fall, Closed pelvic fracture Condition: Stable Prescriptions: No Action albuterol sulfate 90 mcg/actuation HFA aerosol inhaler 2 inh inhalation Q4H PRN (Reason: shortness of breath or wheezing) Qty: 8.5 0RF Discharge Orders: Discharge ED (Routine); Ordered 06/04/23 Ordered By: Dom Grijalva Referrals: Sharmila Sosa FNP [Primary Care Provider] - Discharge Diet: Advance as tolerated Discharge Activity: Limit activity as instructed Patient Instructions: Pelvic Fracture (ED) Coding Level of Care Code ED Dope Pourer for Jose Ramon Colvin
--- NOTE | 2023-06-04 04:52 | CTR_ITS ---
PROCEDURE INFORMATION: Exam: CT Left Lower Extremity Without Contrast, Hip Exam date and time: 06/04/2023 5:07 AM Age: 67 years old Clinical indication: Injury or trauma; Fall; Blunt trauma; Hip; Left TECHNIQUE: Imaging protocol: CT of the left lower extremity without contrast was performed. Exam focused on the hip. Radiation optimization: All CT scans at this facility use at least one of these dose optimization techniques: automated exposure control; mA and/or kV adjustment per patient size (includes targeted exams where dose is matched to clinical indication); or iterative reconstruction. COMPARISON: CR (PELVIS, ) 06/04/2023 4:27 AM RADIATION DOSE METRICS: Total DLP (mGy-cm): 376.58 FINDINGS: Bones/joints: The bones are osteopenic. There is comminuted fracture of the acetabulum involving the roof, anterior and posterior columns. There is comminuted fracture of the superior and inferior pubic rami. Soft tissues: Incidental note is made of a large fat containing left inguinal hernia. CT/CT hip LT wo con* [id number] IMPRESSION: Left pelvic fractures as described including the acetabulum.
[2023-06-04 06:00] VITALS: BP 134/58; PULSE 64; RESP 16; O2SAT 97
== END 2023-06-04 08:16 | disposition home or self-care (01) ==
PROVIDERS: Emergency Provider Emergency Medicine; PCP Nurse Practitioner Family
DX: S32.9XXA Fracture of unspecified parts of lumbosacral spine and pelvis, initial encounter for closed fracture (principal); F17.210 Nicotine dependence, cigarettes, uncomplicated; W06.XXXA Fall from bed, initial encounter; Y92.129 Unspecified place in nursing home as the place of occurrence of the external cause
CPT/HCPCS: 73502; 73700; 99284

== ENCOUNTER 2023-07-17 12:54 | Outpatient (CLI) | payer MEDICARE, SELFPAY ==
--- NOTE | 2023-07-17 13:01 | XR_ITS ---
WS: [id number] SCREENING DEXA SCAN [facility] CLINICAL INFORMATION: AGE RELATED OSTEOPOROSIS W/O CURRENT FX COMPARISON: None. FINDINGS: The L1-L4 bone mineral density measures 0.765 g/cm2. This corresponds to a T score score of -3.8 and Z score of -3.0. Left femoral neck bone mineral density measures 0.671 g/cm2. This corresponds to a T score of -3.0 an d Z score of -2.1. Right femoral neck bone mineral density measures 0.680 g/cm2. This corresponds to a T score -2.9of an d Z score of -2.1. Mean femoral neck bone mineral density measures 0.676 g/cm2. This corresponds to a T score of -3.0 an d Z score of -2.1. IMPRESSION: Osteoporosis lumbar spine and femoral necks. Patient's FRAX calculated 10 year probability for major osteoporotic fracture is 28.4% and osteoporot ic hip fracture is 18.9%.
== END 2023-07-17 12:55 | disposition home or self-care (01) ==
LOC: RAD 12:55
PROVIDERS: PCP Nurse Practitioner Family; Visit Provider Nurse Practitioner
DX: M81.0 Age-related osteoporosis without current pathological fracture (principal)
CPT/HCPCS: 77080

== ENCOUNTER 2024-08-25 14:32 | Emergency (ER) | payer MEDICARE, SELFPAY ==
--- NOTE | 2024-08-25 14:33 | ECG_ITS ---
[facility] Test Date: 2024-08-25 Pat Name: Alfie Paige Department: Room: Gender: Male Data Technician: : 1955 Requested By: Kamila Lainez Order Number: [id number] Reading MD: MARCELLA MICHELLE Measurements Intervals Export Rate: 60 P: 58 WA: 171 QRS: -48 QRSD: 96 T: 53 QT: 347 QTc: 349 Interpretive Statements SINUS RHYTHM LOW QRS VOLTAGE IN PRECORDIAL LEADS [QRS DEFLECTION < 1.0 mV IN CHEST LEADS] LEFT ANTERIOR FASCICULAR BLOCK [QRS AXIS <= -45, QR IN I, RS IN II] POSSIBLE ANTERIOR MYOCARDIAL INFARCTION , PROBABLY OLD [30 ms Q WAVE IN V3/V4, OR R < 0.2 mV IN V4] Compared to ECG 05/06/2022 22:25:04 No significant changes Electronically Signed On 08-26-2024 23:31:36 CDT by MARCELLA MICHELLE [id number]
[2024-08-25 14:34] VITALS: BP 120/72; PULSE 63; RESP 16; TEMP 37.3; O2SAT 90
--- NOTE | 2024-08-25 14:47 | ED_ITS ---
HPI - Chest Pain 2 General: Chief Complaint: Chest Pain Stated Complaint: Chest Pain Time Seen by Provider: 08/25/24 14:37 Source: patient and EMS Mode of arrival: EMS Limitations: no limitations History of Present Illness: 69-year-old male here from [facility] home states that earlier today he had a couple minute episode of chest pain that resolved has been completely chest pain-free since then he has no complaints at this time denies any nausea denies any shortness of breath. Denies any worse improving factors Associated symptoms: Deny abdominal pain, dyspnea, fever(s), nausea or vomiting Related Data Previous Rx's ?Medication ?Instructions ?Recorded albuterol sulfate 90 mcg/actuation 2 inh inhalation Q4 H PRN shortness 12/22/20 aerosol inhaler of breath or wheezing #8.5 g rakel Allergies Allergy/AdvReac Type Severity Reaction Status Date / Time No Known Allergies Allergy Verified 06/04/23 04:13 Review of Systems 2 Const: Denies: fever(s), chills, body aches or change in appetite ENMT: Denies: throat pain or dental pain Card: Reports: chest pain Resp: Denies: dyspnea GI: Denies: abdominal pain, nausea, vomiting or diarrhea Musc: Denies: neck pain or back pain Skin/Breast: Denies: rash Neuro: Denies: headache(s) PFSH ED 2 PFSH: Medical History Memory impairment Family History Mother Dementia Father CAD (coronary artery disease) Social History Smoking and tobacco/nicotine status: current every day tobacco/nicotine user cigarettes Packs smoked per day: 2 Physical Exam 2 Const: COMMON NORMALS: no acute distress, patient oriented x3 and healthy appearing HENMT: COMMON NORMALS: normocephalic and atraumatic HEAD & SCALP: n ormocephalic and atraumatic Eye: COMMON NORMALS: Equal, round and reactive pupils present and EOMs intact bilaterally PUPIL: Yes Equal, round and reactive pupils present Neck/C-Spine: COMMON NORMALS: full ROM and supple Chest: COMMONS NORMALS: normal inspection of the chest and normal palpation of entire chest wall Resp: COMMON NORMALS: normal respiratory effort, No retractions, No use of accessory muscles and clear to auscultation bilaterally AUSCULTATION: clear to auscultation bilaterally Cardio: COMMON NORMALS: regular rate, regular rhythm and No murmurs present (Cardio) RATE: regular rate RHYTHM: regular rhythm GI: COMMON NORMALS: Normal to inspection, nondistended, normoactive bowel sounds present, Soft to palpation, non-tender and no masses PALPATION: Yes Soft to palpation Extremity: COMMON NORMALS: normal to inspection and full ROM Neuro: COMMON NORMALS: patient oriented x3, moves all extremities and no focal motor deficits Psych: COMMON NORMALS: mental status grossly normal, Normal thought process present and cooperative THOUGHT PROCESS: Normal thought process present Skin: COMMON NORMALS: no rashes or lesions noted and no wounds GENERAL SKIN EXAM: no rashes or lesions noted Course 2 Vital Signs: Vital signs: Vital Signs Temperature 99.2 F 08/25/24 14:34 Pulse Rate 66 08/25/24 17:04 Respiratory Rate 18 08/25/24 15:39 Blood Pressure 119/72 08/25/24 17:04 Pulse Oximetry 98 08/25/24 17:04 Oxygen Delivery Me thod Room Air 08/25/24 15:39 Oxygen Flow Rate 2 08/25/24 14:34 MDM - Chest Pain Medical Decision Making Patient presents for chest pain atypical in nature initial repeat troponins here are negative no signs of ACS no signs of dissection no signs of pulm embolism he is well-appearing here and stable for discharge. Medical Records I reviewed the patient's medical records. Lab Data I reviewed the patient's lab results. 08/25/24 14:45 08/25/24 14:45 Radiology Impressions Chest X-Ray 08/25/24 14:51 IMPRESSION: 1. No acute cardiopulmonary finding. Laboratory Results WBC 8.85 10^3/uL (3.29-11.43) 08/25/24 14:45 RBC 4.76 10^6/uL (3.85-5.65) 08/25/24 14:45 Hgb 13.00 g/dL (11.27-16.99) 08/25/24 14:45 Hct 41.5 % (37-53) 08/25/24 14:45 MCV 87.2 fl (82-101) 08/25/24 14:45 MCH 27.3 pg (27-33) 08/25/24 14:45 MCHC 31.3 g/dL (30-55) 08/25/24 14:45 RDW 14.6 % (12.1-15.1) 08/25/24 14:45 Plt Count 284 10^3/cmm (157-399) 08/25/24 14:45 MPV 9.1 fL (7.4-10.4) 08/25/24 14:45 Neut % (Auto) 76.0 % 08/25/24 14:45 Lymph % (Auto) 12.0 % 08/25/24 14:45 [place] % (Auto) 6.8 % 08/25/24 14:45 Eos % (Auto) 4.3 % 08/25/24 14:45 Baso % (Auto) 0.6 % 08/25/24 14:45 Neut # (Auto) 6.73 10^3/uL (1.8-7.7) 08/25/24 14:45 Lymph # (Auto) 1.1 10^3/uL (0.8-4.8) 08/25/24 14:45 [place] # (Auto) 0.6 10^3/uL (0.2-0.9) 08/25/24 14:45 Eos # (Auto) 0.4 10^3/uL (0.0-0.8) 08/25/24 14:45 Baso # (Auto) 0.1 10^3/uL (0.0-0.1) 08/25/24 14:45 Nucleated RBC % (auto) 0 % 08/25/24 14:45 Nucleated RBCs # 0.0 /100WBC 08/25/24 14:45 Sodium 139 mmol/L (136-145) 08/25/24 14:45 Potassium 4.7 mmol/L (3.5-5.1) 08/25/24 14:45 Chloride 99 mmol/L (98-107) 08/25/24 14:45 Carbon Dioxide 29 mmol/L (22-29) 08/25/24 14:45 Anion Gap 15.7 (5-19) 08/25/24 14:45 BUN 12 mg/dL (8-23) 08/25/24 14:45 Creatinine 0.8 mg/dL (0.7-1.2) 08/25/24 14:45 GFR Calculation 95.6 mL/min (90-130) 08/25/24 14:45 Glucose 95 mg/dL (65-115) 08/25/24 14:45 Calculated Osmolality 288 mOsm/kg (285-295) 08/25/24 14:45 Calcium 9.2 mg/dL (8.5-10.5) 08/25/24 14:45 Total Bilirubin 0.2 mg/dL (0.15-1.2) 08/25/24 14:45 AST 18 U/L (0-40) 08/25/24 14:45 ALT 20 U/L (0-41) 08/25/24 14:45 Alkaline Phosphatase 142 U/L (40-130) H 08/25/24 14:45 Troponin T Baseline < 6 ng/L (0-15) 08/25/24 14:45 Troponin T 120 Minute < 6.0 ng/L (0-15) 08/25/24 16:31 Delta Troponin T 0 ABS# (0-10) 08/25/24 16:31 NT-Pro-B Natriuret Pep < 36 pg/mL (0-125) 08/25/24 14:45 Total Protein 7.0 g/dL (6.6-8.7) 08/25/24 14:45 Albumin 4.2 g/dL (3.5-5.2) 08/25/24 14:45 Globulin 2.8 g/dL (1.3-4.6) 08/25/24 14:45 Lipase 10 U/L (13-60) L 08/25/24 14:45 All radiology interpretation(s) finalized by discharge EKG Data EKG 1: I personally reviewed and interpreted this EKG as follows: EKG interpretation date: 08/25/24 EKG interpretation time: 14:34 Interpretation: nsr hr [address] elevation qrs 96 qtc 349 EKG 2: I personally reviewed and interpreted this EKG as follows: EKG interpretation date: 08/25/24 EKG interpretation time: 16:37 Interpretation: sinus alexa hr [address] elevation qrs 71 qtc 368 Discharge Plan Discharge Patient Disposition: Home Clinical Impression: Chest pain Condition: Stable Prescriptions: No Action albuterol sulfate 90 mcg/actuation HFA aerosol inhaler 2 inh inhalation Q4H PRN (Reason: shortness of breath or wheezing) Qty: 8.5 0RF Discharge Orders: Discharge ED (Routine); Ordered 08/25/24 Ordered By: Kamila Lainez Referrals: Sharmila Sosa FNP [Primary Care Provider, Unknown] Discharge Diet: Advance as tolerated Discharge Activity: Resume usual activity Patient Instructions: Chest Pain (ED) Print Language: Kazakh Coding Level of Care Code ED 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
--- NOTE | 2024-08-25 14:51 | XR_ITS ---
WS: [id number] Exam: XR chest 1V portable [id number] Date/Time of Exam: 08/25/2024 2:57 PM Reason For Exam: cp Comparison 05/05/2023. The lungs are fully expanded. No acute infiltrates. No pleural effusions. Accentuation of the RIGHT infrahilar markings probably due to rotation. Bony structures are intact. Advanced DJD of both shoulders. XR/XR chest 1V portable [id number] IMPRESSION: 1. No acute cardiopulmonary finding.
[2024-08-25 14:52] LABS: Basophils # 0.1 10^3/uL (0.0-0.1); Basophils % 0.6 %; Eosinophils # 0.4 10^3/uL (0.0-0.8); Eosinophils % 4.3 %; Hematocrit 41.5 % (37-53); Lymphocytes # 1.1 10^3/uL (0.8-4.8); Mean Corpuscular HGB Conc 31.3 g/dL (30-55); Mean Corpuscular Hemoglobin 27.3 pg (27-33); Mean Corpuscular Volume 87.2 fl (82-101); Mean Platelet Volume 9.1 fL (7.4-10.4); Monocytes # 0.6 10^3/uL (0.2-0.9); Monocytes % 6.8 %; Neutrophils # 6.73 10^3/uL (1.8-7.7); Nucleated Red Blood Cells % 0 %; Platelet Count 284 10^3/cmm (157-399); Red Blood Count 4.76 10^6/uL (3.85-5.65); Red Cell Distribution Width 14.6 % (12.1-15.1); White Blood Count 8.85 10^3/uL (3.29-11.43)
[2024-08-25 15:14] LABS: Troponin(5th) Baseline < 6 ng/L (0-15)
[2024-08-25 15:30] LABS: Alanine Aminotransferase 20 U/L (0-41); Albumin Level 4.2 g/dL (3.5-5.2); Alkaline Phosphatase 142 U/L (40-130); Anion Gap 15.7 (5-19); Aspartate Amino Transferase 18 U/L (0-40); Blood Urea Nitrogen 12 mg/dL (8-23); Calcium 9.2 mg/dL (8.5-10.5); Carbon Dioxide 29 mmol/L (22-29); Chloride 99 mmol/L (98-107); Creatinine Clr Calc Pharmacy 88.5087; Globulin 2.8 g/dL (1.3-4.6); Glomerular Filtration Rate 95.6 mL/min (90-130); Glucose 95 mg/dL (65-115); Lipase 10 U/L (13-60); NT Pro B Type Natriuretic Pept < 36 pg/mL (0-125); Osmolality Calculated 288 mOsm/kg (285-295); Potassium 4.7 mmol/L (3.5-5.1); Sodium 139 mmol/L (136-145); Total Bilirubin 0.2 mg/dL (0.15-1.2)
[2024-08-25 15:39] VITALS: BP 122/72; PULSE 60; RESP 18; O2SAT 98
--- NOTE | 2024-08-25 16:33 | ECG_ITS ---
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: : 1955 Requested By: Kamila Lainez Order Number: [id number] Reading MD: MARCELLA MICHELLE Measurements Intervals [place] Rate: 55 P: 51 ID: [id number] QRS: -26 QRSD: 71 T: 22 QT: 379 QTc: 364 Interpretive Statements SINUS BRADYCARDIA BORDERLINE LEFT AXIS DEVIATION [QRS AXIS < -20] LOW QRS VOLTAGE IN PRECORDIAL LEADS [QRS DEFLECTION < 1.0 mV IN CHEST LEADS] PATTERN CONSISTENT WITH PULMONARY DISEASE NONSPECIFIC ST & T-WAVE ABNORMALITY Compared to ECG 08/25/2024 14:34:10 T-wave abnormality now present Sinus rhythm no longer present Left anterior fascicular block no longer present Myocardial infarct finding no longer present Electronically Signed On 08-26-2024 23:39:21 CDT by MARCELLA MICHELLE [email or web address] [id number]
[2024-08-25 17:04] VITALS: BP 119/72; PULSE 66; O2SAT 98
[2024-08-25 17:10] LABS: Troponin 5 2HR < 6.0 ng/L (0-15); Troponin 5 2HR Delta 0 ABS# (0-10)
[2024-08-25 17:24] VITALS: BP 144/98; PULSE 66; O2SAT 98
[2024-08-25 17:45] VITALS: RESP 18; O2SAT 99
[2024-08-25 18:21] VITALS: PULSE 72; O2SAT 91
== END 2024-08-25 20:21 | disposition home or self-care (01) ==
PROVIDERS: Emergency Provider Emergency Medicine; PCP Nurse Practitioner Family
DX: R07.9 Chest pain, unspecified (principal)
CPT/HCPCS: 36415; 71045; 80053; 83690; 83880; 84484; 85025; 93005; 99285

== ENCOUNTER 2025-02-04 11:54 | Emergency (ER) | payer MEDICARE, MEDICAID, SELFPAY ==
[2025-02-04 11:55] VITALS: BP 110/77; PULSE 57; RESP 18; TEMP 36.9; O2SAT 91; BMI 24.4
--- NOTE | 2025-02-04 11:56 | CT_ITS ---
WS: [id number] CT ABDOMEN PELVIS TECHNIQUE: Contrast-enhanced CT of the abdomen and pelvis with coronal and sagittal reformatted images. CLINICAL INFORMATION: back/flank pain COMPARISON: CT pelvis 2023 DLP: 1338.[address] scans at [facility] use at least one of these dose optimization techniques: automated exposure control; mA and/or kV adjustment per patient size (includes targeted exams where dose is matched to clinical indication); or iterative reconstruction. FINDINGS: Mild compression fracture superior endplate T12. No retropulsion. Visualized fracture cleft in the superior endplate with loss of approximately 25% vertebral body height. This has a recent appearance with persistent visualized fracture cleft. Bilateral wid[place]outh inguinal hernias were present in 2023 but more bowel has herniated bilaterally today. Left-sided inguinal hernia contains a large portion of sigmoid colon although nonobstructed. A right-sided widemouth hernia contains herniated distal ileum and small bowel ileal loops with a few dilated loops of small bowel inferiorly with a few air- fluid levels. Slight pinching at the hernia neck although no evidence of high- grade obstruction. Persistent air and stool in the colon. Slight patchy infiltrates and atelectasis in the lung bases. Fatty liver. A few liver cysts. Slight sludge or tiny calculi in the gallbladder. No gallbladder wall thickening or pericholecystic fluid. Fatty atrophy of the pancreas. Calcifications in the pancreatic head can be seen with chronic pancreatitis. Normal portal vein and splenic vein. Celiac and SMA are patent. Aortic calcification. Adrenal glands are normal. Normal renal parenchymal enhancement. No hydronephrosis. Small RIGHT renal cyst. Small esophageal hiatal hernia. Osteopenia. Moderate to advanced arthritis both hips. Prior healed fracture d eformity LEFT inferior pubic ramus. Chronic spondylolysis L5-S1 with grade 1 anterolisthesis. Chronic visualized LEFT rib fractures with callus formation. CT/CT abdomen pelvis w con* [id number] IMPRESSION: 1. Fracture cleft superior endplate T12 with loss of approximately 25% vertebr al body height. This has an acute appearance. No retropulsion. Osteopenia. 2. Grade 1 anterolisthesis L5 on S1 with chronic spondylolysis. 3. Slight patchy infiltrate/atelectasis in the lung bases. 4. Small esophageal hiatal hernia. 5. [place] bilateral inguinal hernias described above with a significant amy unt of herniated bowel but no evidence of high-grade obstruction. Recommend fol low-up surgical consultation. 6. A few calcifications in the pancreatic head can be seen with chronic pancre atitis. 7. Tiny trace of sludge or microcalculi in the gallbladder. 8. No other acute findings. Notified Kamila Lainez MD at 02/04/2025 2:04 PM.
--- OUTSIDE RECORDS SUMMARY | 2025-02-04 12:01 | XMS_ITS | Patient Health Record ---
Author Organization [facility] Address [address] [place] [address] Care Team Providers Care Press Smith Helper Name Role Phone Sharmila Sosa APRN Primary Care Provider Unavaila Long Brunomel Unavailable [phone] Reason For Referral No Information Medications Medication SIG (Take, Route, Frequency, Duration) Notes Start Date End Date Status Escitalopram Oxalate 10 MG Tablet 1 tablet Orally Once a day; Duration: 30 Active Rosuvastatin Calcium 10 MG Tablet 1 tablet Orally Once a day; Duration: 90 Active Cetirizine HCl 10 MG Tablet 1 tablet Ora lly Once a day Active Pantoprazole Sodium 40 MG Tablet Delayed Release 1 tablet Orally Once a day; Duration: 30 day(s) 09/28/2019 Active Immunizations Vaccine Route Administration Date Status Comme nts Influenza, seasonal, injecta ble, preservative free, 3 yrs and above Unknown 08/09/2019 Refused Social History Tobacco Use: Social History Observation Description Date Details (start date - stop date) Current Smoker NA - NA Social History Drugs/Alcohol: Social Info Question Answer Notes Alcohol Screen (Audit-C) Did you have a drink containing alcohol in the past year? Yes How often did you have a drink containing alcohol in the past year? 4 or more times a week (4 points) How many drinks did you have on a typical day when you were drinking in the past year? 1 or 2 drinks (0 point) How often did you have 6 or more drinks on one occasion in the past year? Never (0 point) Points 4 Interpretation Positive Drugs Have you used drugs other than those for medical reasons in the past 12 months? No Tobacco Use: Social Info Question Answer Notes xTobacco Use/Smoking Are you a current smoker How often do you smoke cigarettes? every day How many cigarettes a day do you smoke? 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 Problem Dysphagia (15727389) Pharyngoesophageal dysphagia (R13.14) Active confirmed Problem Psychosis (55459089) Psychosis (F29) Active confirmed Plan Of Treatment No Information Insurance Providers Payer Name Payer Address Payer Phone Subscriber Number Group Number Insured Name Patient Relationship to Insured Coverage Start Date Coverage End Date [place] [address] [place] [address] [id number] Alfie Cardenas Self - patient is the insured [place] Medicaid [address] [place] [address] [id number] Alfie Cardenas Self - patient is the insured Medical (General) History Medical History History ICD Code measles mumps Heart Disease hypertension mononucleosis hyperlipidemia back pain heart attack depression vertebral fracture Surgical History Surgery Date(Month/Year) ORIF, left arm Hospitalization History Reason Date(Month/Year) for surgical procedure
--- NOTE | 2025-02-04 12:10 | ED_ITS ---
HPI - Back Pain/Injury 2 General: Chief Complaint: Back Pain/Injury Stated Complaint: back pain x 2 hours Source: patient and EMS Mode of arrival: EMS Limitations: no limitations History of Present Illness: 69-year-old male here from long-term states started having some lower back pain 2 hours ago. States pain is sharp in nature he rates the pain a 6 out of 10 worse with movement and palpation. States improved rest she denies any dysuria denies any vomiting or diarrhea denies any fever Related Data Previous Rx's ?Medication ?Instructions ?Recorded albuterol sulfate 90 mcg/actuation 2 inh inhalation Q4 H PRN shortness 12/22/20 aerosol inhaler of breath or wheezing #8.5 g rakel hydrocodone 5 mg-acetaminophen 325 1 tab PO Q6H PRN pa in #14 tabs 02/04/25 mg tablet Allergies Allergy/AdvReac Type Severity Reaction Status Date / Time No Known Allergies Allergy Verified 06/04/23 04:13 Review of Systems 2 Musc: Reports: back pain PFSH ED 2 PFSH: Medical History Memory impairment Family History Mother Dementia Father CAD (coronary artery disease) Social History Smoking and tobacco/nicotine status: current every day tobacco/nicotine user cigarettes Packs smoked per day: 2 Physical Exam 2 Const: COMMON NORMALS: no acute distress, patient oriented x3 and healthy appearing HENMT: COMMON NORMALS: normocephalic and atraumatic HEAD & SCALP: n ormocephalic and atraumatic Neck/C-Spine: COMMON NORMALS: full ROM and supple Chest: COMMONS NORMALS: normal inspection of the chest Resp: COMMON NORMALS: normal respiratory effort, No retractions, No use of accessory muscles and clear to auscultation bilaterally AUSCULTATION: clear to auscultation bilaterally Cardio: COMMON NORMALS: regular rate, regular rhythm and No murmurs present (Cardio) RATE: regular rate RHYTHM: regular rhythm GI: COMMON NORMALS: Normal to inspection, nondistended, normoactive bowel sounds present, Soft to palpation, non-tender and no masses PALPATION: Yes Soft to palpation OTHER: Bilateral inguinal hernias with no tenderness Back/Pelvis: OTHER: Tenderness along lumbar spine no saddle anesthesia Extremity: COMMON NORMALS: normal to inspection and full ROM Neuro: COMMON NORMALS: patient oriented x3, moves all extremities and no focal motor deficits Psych: COMMON NORMALS: mental status grossly normal, Normal thought process present and cooperative THOUGHT PROCESS: Normal thought process present Skin: COMMON NORMALS: no rashes or lesions noted and no wounds GENERAL SKIN EXAM: no rashes or lesions noted Course 2 Vital Signs: Vital signs: Vital Signs Temperature 98.4 F 02/04/25 11:55 Pulse Rate 57 L 02/04/25 11:55 Respiratory Rate 18 02/04/25 11:55 Blood Pressure 110/77 02/04/25 11:55 Pulse Oximetry 91 02/04/25 11:55 Oxygen Delivery Me thod Nasal Cannula 02/04/25 11:55 Oxygen Flow Rate 2 02/04/25 11:55 MDM - Back Pain/Injury Medical Decision Making Patient presents with back pain differential includes AAA, kidney stone, thoracic fracture. CT scans here showed no signs of stone or AAA. He does have a compression fracture along with osteopenia likely causing his pain he has no signs of cord compression here does have large inguinal hernia no tenderness no signs of obstruction his pain is improved here we will prescribe him [place] for home we will get him follow-up with citizen participation specialist he is return if worsening he understands agrees to plan lab work here was normal Medical Records I reviewed the patient's medical records. Labs I reviewed the patient's lab results. 02/04/25 12:14 02/04/25 12:14 Laboratory Results WBC 9.51 10^3/uL (3.29-11.43) 02/04/25 12:14 RBC 4.68 10^6/uL (3.85-5.65) 02/04/25 12:14 Hgb 12.90 g/dL (11.27-16.99) 02/04/25 12:14 Hct 41.2 % (37-53) 02/04/25 12:14 MCV 88.0 fl (82-101) 02/04/25 12:14 MCH 27.6 pg (27-33) 02/04/25 12:14 MCHC 31.3 g/dL (30-55) 02/04/25 12:14 RDW 14.7 % (12.1-15.1) 02/04/25 12:14 Plt Count 337 10^3/cmm (157-399) 02/04/25 12:14 MPV 8.8 fL (7.4-10.4) 02/04/25 12:14 Neut % (Auto) 72.5 % 02/04/25 12:14 Lymph % (Auto) 16.3 % 02/04/25 12:14 Ransom % (Auto) 5.9 % 02/04/25 12:14 Eos % (Auto) 4.6 % 02/04/25 12:14 Baso % (Auto) 0.4 % 02/04/25 12:14 Neut # (Auto) 6.89 10^3/uL (1.8-7.7) 02/04/25 12:14 Lymph # (Auto) 1.6 10^3/uL (0.8-4.8) 02/04/25 12:14 Ransom # (Auto) 0.6 10^3/uL (0.2-0.9) 02/04/25 12:14 Eos # (Auto) 0.4 10^3/uL (0.0-0.8) 02/04/25 12:14 Baso # (Auto) 0.0 10^3/uL (0.0-0.1) 02/04/25 12:14 Nucleated RBC % (auto) 0 % 02/04/25 12:14 Nucleated RBCs # 0.0 /100WBC 02/04/25 12:14 Sodium 138 mmol/L (136-145) 02/04/25 12:14 Potassium 4.5 mmol/L (3.5-5.1) 02/04/25 12:14 Chloride 102 mmol/L (98-107) 02/04/25 12:14 Carbon Dioxide 26 mmol/L (22-29) 02/04/25 12:14 Anion Gap 14.5 (5-19) 02/04/25 12:14 BUN 15 mg/dL (8-23) 02/04/25 12:14 Creatinine 0.6 mg/dL (0.7-1.2) L 02/04/25 12:14 GFR Calculation 133.2 mL/min (90-130) H 02/04/25 12:14 Glucose 101 mg/dL (65-115) 02/04/25 12:14 Calculated Osmolality 287 mOsm/kg (285-295) 02/04/25 12:14 Calcium 9.2 mg/dL (8.5-10.5) 02/04/25 12:14 Total Bilirubin 0.2 mg/dL (0.15-1.2) 02/04/25 12:14 AST 16 U/L (0-40) 02/04/25 12:14 ALT 17 U/L (0-41) 02/04/25 12:14 Alkaline Phosphatase 146 U/L (40-130) H 02/04/25 12:14 Total Protein 7.3 g/dL (6.6-8.7) 02/04/25 12:14 Albumin 4.1 g/dL (3.5-5.2) 02/04/25 12:14 Globulin 3.2 g/dL (1.3-4.6) 02/04/25 12:14 Urine Color Yellow (Yellow) 02/04/25 13:05 Urine Appearance Clear (CLEAR) 02/04/25 13:05 Urine pH 6.5 (5-7) 02/04/25 13:05 Ur Specific [place] 1.028 (1.005-1.030) 02/04/25 13:05 Urine Protein Negative (Negative) 02/04/25 13:05 Urine Glucose (UA) Negative (Normal) 02/04/25 13:05 Urine Ketones Negative (Negative) 02/04/25 13:05 Urine Blood Negative (Negative) 02/04/25 13:05 Urine Nitrate Negative (Negative) 02/04/25 13:05 Urine Bilirubin Negative (Negative) 02/04/25 13:05 Urine Urobilinogen 2.0 mg/dL (Negative) H 02/04/25 13:05 Ur Leukocyte Esterase Negative (Negative) 02/04/25 13:05 Urine RBC 0-2 /hpf (0-2) 02/04/25 13:05 Urine WBC 0-5 /hpf (0-5) 02/04/25 13:05 Ur Squamous Epith Cells 0-5 /hpf (0-5) 02/04/25 13:05 Amorphous Sediment Not Reportable 02/04/25 13:05 Urine Bacteria None seen /hpf (NONE) 02/04/25 13:05 Hyaline Casts 0.40 /lpf 02/04/25 13:05 All radiology interpretation(s) finalized by discharge Discharge Plan Discharge Patient Disposition: Home Clinical Impression: Back pain, Inguinal hernia, T12 compression fracture Condition: Stable Prescriptions: New hydrocodone-acetaminophen 5-325 mg tablet 1 tab PO Q6H PRN (Reason: pain) Qty: 14 0RF No Action albuterol sulfate 90 mcg/actuation HFA aerosol inhaler 2 inh inhalation Q4H PRN (Reason: shortness of breath or wheezing) Qty: 8.5 0RF Discharge Orders: Discharge ED (Routine); Ordered 02/04/25 Ordered By: Kamila Lainez Referrals: Josué Nolen DO [Physician, Orthopedics] - 4-7 days Sharmila Sosa FNP [Primary Care Provider, Unknown] Discharge Diet: Advance as tolerated Discharge Activity: Resume usual activity Patient Instructions: Inguinal Hernia (ED), Thoracolumbar Fracture (ED), Back Pain (ED) Print Language: [place] Coding Level of Care Code 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
[2025-02-04 12:25] LABS: Hematocrit 41.2 % (37-53); Hemoglobin 12.90 g/dL (11.27-16.99); Mean Corpuscular HGB Conc 31.3 g/dL (30-55); Mean Corpuscular Hemoglobin 27.6 pg (27-33); Mean Corpuscular Volume 88.0 fl (82-101); Nucleated Red Blood Cells % 0 %; Platelet Count 337 10^3/cmm (157-399); Red Blood Count 4.68 10^6/uL (3.85-5.65); White Blood Count 9.51 10^3/uL (3.29-11.43)
[2025-02-04 12:43] LABS: Alanine Aminotransferase 17 U/L (0-41); Albumin Level 4.1 g/dL (3.5-5.2); Alkaline Phosphatase 146 U/L (40-130); Anion Gap 14.5 (5-19); Aspartate Amino Transferase 16 U/L (0-40); Blood Urea Nitrogen 15 mg/dL (8-23); Calcium 9.2 mg/dL (8.5-10.5); Carbon Dioxide 26 mmol/L (22-29); Chloride 102 mmol/L (98-107); Creatinine Clr Calc Pharmacy 93.4933; Globulin 3.2 g/dL (1.3-4.6); Glucose 101 mg/dL (65-115); Osmolality Calculated 287 mOsm/kg (285-295); Potassium 4.5 mmol/L (3.5-5.1); Sodium 138 mmol/L (136-145); Total Protein 7.3 g/dL (6.6-8.7)
[2025-02-04] MEDS: morphine 4 mg/mL SDV 1 mL IVP (13:06)
[2025-02-04] MEDS: ondansetron 2 mg/ML SDV 2 mL 4 MG IVP (13:06)
[2025-02-04 13:11] LABS: Glucose Urine UA Negative (Normal); Nitrate Urine Negative (Negative); Specific Gravity, Urine 1.028 (1.005-1.030)
[2025-02-04 13:13] LABS: Add Urine Microscopic? YES
[2025-02-04] MEDS: iohexol 350 mg/mL 500 mL Btl (per mL) IV (13:25)
--- NOTE | 2025-02-04 13:49 | PC.PHAR ---
Pt is from [facility]
[2025-02-04 14:56] VITALS: BP 126/76; PULSE 58; O2SAT 97
--- NOTE | 2025-02-07 07:42 | DCPLANNER ---
messaged gen surg for er f/u
== END 2025-02-04 14:58 | disposition home or self-care (01) ==
PROVIDERS: Emergency Provider Emergency Medicine; PCP Nurse Practitioner Family
DX: K40.90 Unilateral inguinal hernia, without obstruction or gangrene, not specified as recurrent (principal); S22.080A Wedge compression fracture of T11-T12 vertebra, initial encounter for closed fracture; F17.210 Nicotine dependence, cigarettes, uncomplicated; X58.XXXA Exposure to other specified factors, initial encounter
CPT/HCPCS: 74177; 80053; 81001; 85025; 96374; 96375; 99285; J2270; J2405

== ENCOUNTER → 2025-02-08 13:43 | Outpatient (BNVA) | payer MEDICARE, MEDICAID, SELFPAY | PROVIDERS: PCP Nurse Practitioner Family; Visit Provider Orthopaedic Surgery | DX: S22.080A Wedge compression fracture of T11-T12 vertebra, initial encounter for closed fracture (principal); W19.XXXA Unspecified fall, initial encounter | CPT/HCPCS: 72072; 99203 ==